=== PATIENT | female | born 1955 ===

== ENCOUNTER 2020-09-14 15:21 | Inpatient (IN) | payer OTHER ==
[~2020-09-14] VITALS: Ht 167.6 cm; Wt 44.0 kg
--- NOTE | 2020-09-14 16:12 | NUR ---
SE RECIBE PTE ALERTA Y ORIENTADA X3,REFERIDA POR EL DR.RICKY MI POR DOLOR ABDOMINAL ,LA PTE REFIERE QUE NO GANN COMIDO HOY SUFICIENTE SE LE REALIZA DEXTRO ARROJA 30 ,MISS EUNICE FABIAN LE APLICA [place] ,LA SATURACION LA TENIA BAJA AL MOMENTO DEL TRAGE SE LE PRESENTA A LA SE UBICA EN CRITICO.
--- NOTE | 2020-09-14 16:41 | NUR ---
SE RECIBE PTE DESDE TRIAGE SE UBICA EN CAMA CUBICULO #3 EN LA UNIDAD DE CRITICO SE CONECTA A MONTIOR CARDIACO Y OXYMETRIA DE PULSO PTE ALERTA Y CONCIENTE POR 3 SE ORIENTA PTE SOBRE EL TRATAMIENTO ORDENADO POR EL DR PACHECO SE RELAIZAN MUESTRAS DE LABORTORIO Y SE NOTIFICA ESTUDIO PENDIENTE
== END 2020-09-23 16:18 | disposition home or self-care (01) | DRG 390 ==
LOC: ER 15:21 → SEC-K 21:55 → SURG 09-16 12:55
PROVIDERS: ADMIT Surgery; ATTEND Surgery
PROC: 0D9770Z Drainage of Stomach, Pylorus with Drainage Device, Via Natural or Artificial Opening (ICD-10-PCS; 2020-09-14)
PROC: 0DJD8ZZ Inspection of Lower Intestinal Tract, Via Natural or Artificial Opening Endoscopic (ICD-10-PCS; 2020-09-16)
PROC: 02H633Z Insertion of Infusion Device into Right Atrium, Percutaneous Approach (ICD-10-PCS; 2020-09-16)
PROC: BW21YZZ Computerized Tomography (CT Scan) of Abdomen and Pelvis using Other Contrast (ICD-10-PCS; 2020-09-18)
PROC: 0DB78ZX Excision of Stomach, Pylorus, Via Natural or Artificial Opening Endoscopic, Diagnostic (ICD-10-PCS; 2020-09-20)
PROC: 0DB98ZX Excision of Duodenum, Via Natural or Artificial Opening Endoscopic, Diagnostic (ICD-10-PCS; 2020-09-20)
PROC: 4A033R1 Measurement of Arterial Saturation, Peripheral, Percutaneous Approach (ICD-10-PCS; principal; 2020-09-21)
PROC: 0DJD8ZZ Inspection of Lower Intestinal Tract, Via Natural or Artificial Opening Endoscopic (ICD-10-PCS; 2020-09-21)
DX: K56.690 Other partial intestinal obstruction (principal); M06.9 Rheumatoid arthritis, unspecified; Z20.828 Contact with and (suspected) exposure to other viral communicable diseases; E16.1 Other hypoglycemia; L80 Vitiligo

== ENCOUNTER 2021-01-07 10:48 | Emergency (ER) | payer OTHER ==
[~2021-01-07] VITALS: Ht 172.7 cm; Wt 43.1 kg
[2021-01-07] MEDS ORDERED: LISINOPRIL20 MG (11:00)
[2021-01-07] MEDS ORDERED: ASPIRIN81 MG (11:01)
== END 2021-01-08 12:45 | disposition home or self-care (01) ==
LOC: ER 10:48
DX: E16.1 Other hypoglycemia (principal); E86.0 Dehydration; E87.6 Hypokalemia; R53.1 Weakness; R60.0 Localized edema; Z03.818 Encounter for observation for suspected exposure to other biological agents ruled out